=== PATIENT | female | born 1960 | race Caucasian/White ===

== ENCOUNTER 2018-05-24 17:08 | Emergency (ER) | payer BC ==
[~2018-05-24] VITALS: Ht 160 cm; Wt 86.2 kg
[2018-05-24 17:40] LABS: *BILIRUBIN,URIN NEGATIVE (NEGATIVE); *BLOOD, URINE 2+ (NEGATIVE); *CLARITY,URINE SLIGHTLY CLOUDY (CLEAR); *COLOR,URINE YELLOW (YELLOW); *KETONES,URINE NEGATIVE (NEGATIVE); *PROTEIN,URINE NEGATIVE (NEGATIVE); *UROBILINOGEN,URINE 0.2 E.U./dl (NORMAL); LEUKOCYTE ESTERASE ,URINE TRACE (NEGATIVE); NITRITE, URINE NEGATIVE (NEGATIVE); PH,URINE 5.5 (5.0-8.0); UGLUCOSE NEGATIVE (NEGATIVE)
[2018-05-24 17:42] LABS: BACTERIA,URINE MODERATE /HPF (NONE SEEN); SQUAMOUS EPITHELIAL CELL,UR MANY /HPF (NONE SEEN)
--- NOTE | 2018-05-24 18:09 | NUR ---
mse completed, pt d/c'd home. aci/rx x12 given, copy of ua given. pt ambulated w/o diff/took all belongings.
[2018-05-24 18:11] VITALS: BP 111/77
== END 2018-05-24 18:11 | disposition home or self-care (01) ==
LOC: ER 17:08
DX: M54.31 Sciatica, right side (principal)
CPT/HCPCS: 87086; A4663